=== PATIENT | male | born 1965 | race Caucasian/White ===

== ENCOUNTER 2016-11-10 12:41 | Emergency (ER) | payer OTHER ==
[2016-11-10 13:28] VITALS: BP 123/79
--- NOTE | 2016-11-10 14:32 | Diag Imaging Result Document ---
PROCEDURE NAME: FOREARM-RIGHT - 11/10/2016 PLAIN RADIOGRAPH OF THE RIGHT FOREARM, TWO VIEWS: COMPARISON: None available. FINDINGS: There is no discrete fracture, dislocation, or intrinsic osseous lesion. The visualized joint spaces are essentially unremarkable. The surrounding soft tissues are grossly unremarkable. IMPRESSION: No evidence of acute osseous abnormality.
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
[2016-11-10] MEDS ORDERED: BACTROBAN OINTMENT TOP ONE (15:29)
== END 2016-11-10 16:15 | disposition home or self-care (01) ==
LOC: ED 12:41
DX: S49.91XA Unspecified injury of right shoulder and upper arm, initial encounter (principal); S50.811A Abrasion of right forearm, initial encounter; S51.811A Laceration without foreign body of right forearm, initial encounter; I10 Essential (primary) hypertension; E78.5 Hyperlipidemia, unspecified; J45.909 Unspecified asthma, uncomplicated; Y00.XXXA Assault by blunt object, initial encounter; Z79.51 Long term (current) use of inhaled steroids